=== PATIENT | male | born 1995 | race Caucasian/White ===

== ENCOUNTER 2019-04-26 07:38 | Emergency (ER) | payer BC ==
[2019-04-26 07:53] VITALS: BP 132/87
--- NOTE | 2019-04-26 08:10 | UC ---
Eye Complaint HPI - HPI Summary HPI Summary: URI symptoms last week and slowly resolving but then had both eyes turn red with copious amount of discharge. Center he had to remove crusting constantly. denies vision changes. Then started w/ loss of voice 3 days ago. He works as nurse on cardiac unit and does not want to pass this to other.s - History of Current Complaint Chief Complaint: UCGeneralIllness Stated Complaint: sore THROAT Time Seen by Provider: 04/26/19 07:54 Hx Obtained From: Patient Onset/Duration: Gradual Onset Pain Intensity: 0 Pain Scale Used: 0-10 Numeric Aggravating Factor(s): Nothing Alleviating Factor(s): Nothing Associated Signs And Symptoms: Negative: Photophobia - Allergies/Home Medications Allergies/Adverse Reactions: Allergies Allergy/AdvReac Type Severity Reaction Status Date / Time No Known Allergies Allergy Verified 04/26/19 07:53 Home Medications: Home Medications Dayquil 1 tab PO ONCE PRN 04/26/19 [History Confirmed 04/26/19] PMH/Surg Hx/FS Hx/Imm Hx - Additional Past Medical History Additional PMH: no chronic issues. Previously Healthy: Yes - Surgical History Surgical History: Yes Surgery Procedure, Year, and Place: tonsillectomy/addenoids - Family History Known Family History: Positive: None - Social History Alcohol Use: Rare Substance Use Type: None Smoking Status (MU): Never Smoked Tobacco Review of Systems All Other Systems Reviewed And Are Negative: Yes Constitutional: Positive: Negative Skin: Negative: Rash Eyes: Positive: Drainage, Eye Redness. Negative: Blurred Vision, Diplopia ENT: Positive: Other - loss of voice. Negative: Sore Throat, Ear Ache, Nasal Discharge, Sinus Congestion Respiratory: Negative: Shortness Of Breath, Cough Cardiovascular: Positive: Negative Gastrointestinal: Negative: Abdominal Pain, Vomiting, Diarrhea, Nausea Neurological: Negative: Headache Physical Exam Triage Information Reviewed: Yes Appearance: Well-Appearing Vital Signs: Initial Vital Signs Temp 98 F 04/26/19 07:48 Pulse 69 04/26/19 07:48 Resp 16 04/26/19 07:48 BP 132/87 04/26/19 07:48 Pulse Ox 100 04/26/19 07:48 Vital Signs Reviewed: Yes Eyes: Positive: Conjunctiva Inflamed - bilat. Negative: Discharge - none noted on exam ENT: Positive: Pharynx normal, TMs normal, Uvula midline, Other - no voice. Negative: Tonsillar swelling, Tonsillar exudate, Muffled voice Respiratory Exam: Normal Cardiovascular Exam: Normal Skin: Negative: Rashes Eye Complaint Course/Dx - Course Course Of Treatment: Resolving URI symptoms and then developed bilat conjunctivitis a few days ago. Assoc. w/ laryngitis. vitals good. Discussed the likelihood of eye symptoms being viral but will cover for bacterial source. Acute laryngitis noted and have urged vocal rest, gargling and plenty of water. - Differential Dx/Diagnosis Provider Diagnosis: Laryngitis, Conjunctivitis Discharge - Sign-Out/Discharge Documenting (check all that apply): Patient Departure All imaging exams completed and their final reports reviewed: No Studies - Discharge Plan Condition: Good Disposition: HOME Prescriptions: Erythromycin OPTH OINT* [Erythromycin 0.5% OPTH OINT*] 1 applic BOTH EYES TID # 1 ophth.oint Patient Education Materials: Laryngitis (ED) Forms: *Work Release Referrals: No Primary Care Phys,NOPCP [Primary Care Provider] - Additional Instructions: Vocal rest is important and although I think your eye symptoms are viral we will treat with antibiotic ointment for the small chance this is bacterial. - Billing Disposition and Condition Condition: GOOD Disposition: Home - Attestation Statements Provider Attestation: I was available for consult. This patient was seen by the DAILY. The patient was not presented to , seen by or examined by ri -Carey Clark MD
== END 2019-04-26 08:15 | disposition home or self-care (01) ==
LOC: UCEAST 07:38
DX: H10.9 Unspecified conjunctivitis (principal); J04.0 Acute laryngitis
CPT/HCPCS: 99202; G0463